=== PATIENT | male | born 1970 | race American Indian/Alaskan Native ===

== ENCOUNTER 2016-07-19 12:41 | Emergency (ER) | payer SELFPAY ==
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
[2016-07-19] MEDS ORDERED: XYLOCAINE 1% MPF 5 mL INFILTRATI ONE (18:03)
[2016-07-19] MEDS ORDERED: BOOSTRIX IM ONE (18:04)
[2016-07-19 18:39] VITALS: BP 127/90
== END 2016-07-19 18:37 | disposition home or self-care (01) ==
LOC: ED 12:41
DX: S60.351A Superficial foreign body of right thumb, initial encounter (principal); W45.8XXA Other foreign body or object entering through skin, initial encounter; I10 Essential (primary) hypertension; E78.00 Pure hypercholesterolemia, unspecified; F12.10 Cannabis abuse, uncomplicated; F17.200 Nicotine dependence, unspecified, uncomplicated; W22.8XXA Striking against or struck by other objects, initial encounter; Y93.89 Activity, other specified; Y92.89 Other specified places as the place of occurrence of the external cause; Y99.8 Other external cause status
CPT/HCPCS: 90471; 90715

== ENCOUNTER 2018-05-23 10:02 | Inpatient (IN) | payer SELFPAY ==
[2018-05-23 10:46] LABS: Basophils # (Auto) 0.1 K/mm3 (0.0-0.1); Basophils % (Auto) 0.6 % (0.0-1.8); Eosinophils # (Auto) 0.1 K/mm3 (0.0-0.4); Hemoglobin 13.8 gm/dl (11.8-15.2); Lymphocytes # (Auto) 1.1 K/mm3 (1.2-5.4); Lymphocytes % (Auto) 8.8 % (13.4-35.0); Mean Corpuscular HGB Conc 32 % (32-34); Mean Corpuscular Volume 82 fl (84-94); Monocytes # (Auto) 1.2 K/mm3 (0.0-0.8); Platelet Count 259 K/mm3 (140-440); Red Blood Count 5.28 M/mm3 (3.65-5.03); Red Cell Distribution Width 14.4 % (13.2-15.2)
[2018-05-23 11:01] LABS: Calcium 9.3 mg/dL (8.4-10.2)
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
[2018-05-23 12:33] LABS: Creatine Kinase MB 3.5 ng/mL (0.0-4.0)
--- NOTE | 2018-05-23 21:31 | Event Note ---
Date: 05/23/18 See dictated h/p in reports CHF exacerbation DORA/CKD HTN
[2018-05-24] MEDS ORDERED: PERCOCET 5/325 PO PRN (02:50)
[2018-05-24] MEDS ORDERED: SODIUM CHLORIDE FLUSH SYRINGE 10 ML IV PRN (02:50)
[2018-05-24] MEDS ORDERED: ZOFRAN IV PRN (02:50)
[2018-05-24] MEDS ORDERED: TYLENOL PO PRN (02:50)
[2018-05-24] MEDS ORDERED: DILAUDID IV PRN (02:50)
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
[2018-05-24] MEDS: K-DUR PO SCH ×2 (05:03→14:39)
[2018-05-24] MEDS: COREG PO SCH ×3 (05:04→21:32)
[2018-05-24 05:31] LABS: Basophils # (Auto) 0.1 K/mm3 (0.0-0.1); Basophils % (Auto) 0.5 % (0.0-1.8); Eosinophils # (Auto) 0.2 K/mm3 (0.0-0.4); Eosinophils % (Auto) 1.6 % (0.0-4.3); Hematocrit 40.4 % (35.5-45.6); Hemoglobin 13.2 gm/dl (11.8-15.2); Lymphocytes % (Auto) 17.1 % (13.4-35.0); Mean Corpuscular HGB Conc 33 % (32-34); Mean Corpuscular Volume 81 fl (84-94); Monocytes # (Auto) 1.5 K/mm3 (0.0-0.8); Monocytes % (Auto) 12.6 % (0.0-7.3); Platelet Count 255 K/mm3 (140-440); Red Blood Count 4.99 M/mm3 (3.65-5.03); Red Cell Distribution Width 14.7 % (13.2-15.2)
[2018-05-24] MEDS ORDERED: LASIX IV SCH (06:00)
[2018-05-24 06:09] LABS: Calcium 8.9 mg/dL (8.4-10.2)
[2018-05-24] MEDS: APRESOLINE PO SCH ×3 (08:32→21:32)
[2018-05-24] MEDS ORDERED: HCTZ PO SCH (10:00)
[2018-05-24] MEDS ORDERED: ZESTRIL PO SCH (10:00)
--- NOTE | 2018-05-24 10:16 | Consultation ---
History of Present Illness - Reason for Consult Consult date: 05/24/18 acute renal failure, chronic renal failure, accelerated hypertension Requesting physician: JOIE NOVAK - History of Present Illness The patient is a 47-year-old male presented with the chief complaint breath. The patient states he began having chest reflux over the past 4 days. Patient states the symptoms included burning in his ears, sore throat and increased eructation. Patient denied ever having chest pain or chest discomfort. The patient states this morning he experienced dyspnea on exertion and nausea. Patient states she has not noticed a change in his urinary output over the past 3 years. Patient denies bilateral lower extremity swelling Location: [See above] Duration: [See above] Quality: Dyspnea on exertion Severity: [See above] Modifying factors: [see above] Context: [see above] Mode of transportation: [not driving] - Past Medical History Hx Hypertension: Yes Hx Congestive Heart Failure: Yes Hx Renal Disease: Yes Hx Asthma: Yes Additional medical history: ENLARGED HEART. HIGH CHOLESTEROL - Surgical History Past Surgical History?: No - Family History Family history: no significant - Social History Smoking Status: Current Some Day Smoker (occasional) Substance Use Type: Alcohol (occasional), Cocaine (crack use.) ROS: Stated complaint: RODERICK Other details as noted in HPI Constitutional: no symptoms reported Eyes: denies: eye pain ENT: denies: throat pain Respiratory: shortness of breath, SOB with exertion Cardiovascular: dyspnea on exertion. denies: chest pain Endocrine: no symptoms reported Gastrointestinal: nausea, vomiting. denies: abdominal pain Genitourinary: denies: dysuria Musculoskeletal: denies: back pain Neurological: denies: headache Medications and Allergies Allergies Allergy/AdvReac Type Severity Reaction Status Date / Time No Known Allergies Allergy Verified 05/23/18 10:10 Home Medications Medication Instructions Recorded Confirmed Last Taken Type Carvedilol [Coreg] 25 mg PO BID 05/23/18 05/23/18 Unknown History Famotidine [Pepcid] 40 mg PO QHS 05/23/18 05/23/18 Unknown History Lisinopril [Zestril TAB] 40 mg PO QDAY 05/23/18 05/23/18 Unknown History amLODIPine [Norvasc] 10 mg PO DAILY 05/23/18 05/23/18 Unknown History hydrALAZINE [Apresoline TAB] 100 mg PO TID 05/23/18 05/23/18 Unknown History hydroCHLOROthiazide [HCTZ] 25 mg PO QDAY 05/23/18 05/23/18 Unknown History Active Meds: Active Medications Acetaminophen (Tylenol) 650 mg PO Q4H PRN PRN Reason: Pain MILD(1-3)/Fever >100.5/BAXTER Amlodipine Besylate (Norvasc) 10 mg PO DAILY [facility] Carvedilol (Coreg) 25 mg PO BID [facility] Last Admin: 05/24/18 05:04 Dose: 25 mg Documented by: Famotidine (Pepcid) 10 mg PO BID [facility] Furosemide (Lasix) 40 mg IV 0600,1800 [facility] Last Admin: 05/24/18 05:36 Dose: 40 mg Documented by: Hydralazine HCl (Apresoline) 100 mg PO TID [facility] Hydrochlorothiazide (Hctz) 25 mg PO QDAY [facility] Hydromorphone HCl (Dilaudid) 0.5 mg IV Q3H PRN PRN Reason: Pain , Severe (7-10) Sodium Chloride (Nacl 0.9% 1000 Ml) 1,000 mls @ 75 mls/hr IV DIRECT SEEMA Lisinopril (Zestril) 40 mg PO QDAY [facility] Miscellaneous Medication (Famotidine [Pepcid]) 40 mg PO QHS [facility] Ondansetron HCl (Zofran) 4 mg IV Q8H PRN PRN Reason: Nausea And Vomiting Oxycodone/Acetaminophen (Percocet 5/325) 1 tab PO Q6H PRN PRN Reason: Pain, Moderate (4-6) Pneumococcal Polyvalent Vaccine (Pneumovax 23) 0.5 ml IM .ONCE ONE Stop: 05/24/18 12:01 Potassium Chloride (K-Dur) 10 meq PO Q12H [facility] Last Admin: 05/24/18 05:03 Dose: 10 meq Documented by: Sodium Chloride (Sodium Chloride Flush Syringe 10 Ml) 10 ml IV BID [facility] Sodium Chloride (Sodium Chloride Flush Syringe 10 Ml) 10 ml IV PRN PRN PRN Reason: LINE FLUSH Exam - Vital Signs Vital signs: Vital Signs Temp Pulse Resp BP Pulse Ox 98 F 55 L 20 127/74 98 05/23/18 10:10 05/23/18 10:10 05/23/18 10:10 05/23/18 10:10 05/23/18 10:10 - Physical Exam Narrative exam: GENERAL: The patient is well-developed well-nourished male lying on stretcher not appearing to be in acute distress. [] HEENT: Normocephalic. Atraumatic. Extraocular motions are intact. Patient has moist mucous membranes. NECK: Supple. Trachea midline CHEST/LUNGS: Clear to auscultation. There is no respiratory distress noted. HEART/CARDIOVASCULAR: Regular. There is no tachycardia. There is no gallop rub or murmur. ABDOMEN: Abdomen is soft, nontender. Patient has normal bowel sounds. There is no abdominal distention. SKIN: There is no rash. There is no edema. There is no diaphoresis. NEURO: The patient is awake, alert, and oriented. The patient is cooperative. The patient has normal speech MUSCULOSKELETAL: There is no evidence of acute injury. Results - Lab Results 05/24/18 04:57 05/24/18 04:57 Most recent lab results Calcium 8.9 mg/dL (8.4-10.2) 05/24/18 04:57 Assessment and Plan Impression: * DORA on adv CKD sec to HTN--cr 1.9 in 2013 * Uncontrolled HTN, obesity, salt intake, cocaine use and noncompliance are all contributory factors. * Chest pain under evaluation * cardiomyopathy * Chronic smoker. * Drug abuse * Alcohol abuse. 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
[2018-05-24] MEDS: PEPCID PO SCH ×2 (11:33→21:31)
[2018-05-24] MEDS: SODIUM CHLORIDE FLUSH SYRINGE 10 ML IV SCH ×2 (11:34→21:32)
[2018-05-24] MEDS: NORVASC PO SCH (11:34)
[2018-05-24] MEDS ORDERED: AFLURIA QUAD 2018-2019 SYRINGE IM ONE (12:00)
[2018-05-24] MEDS ORDERED: PNEUMOVAX 23 IM ONE (12:00)
--- NOTE | 2018-05-24 14:29 | Progress Note ---
Assessment and Plan Assessment and plan: Patient is a 47 yo Black Man with a history of cardiomyopathy, dyslipidemia, hypertension, CKD 3, asthma, tobacco dependency, CHF, cocaine use and GERD who presented to [facility] ED with SOB and acid reflux. * 2v CXR Impression: Cardiomegaly * 2D ECHO moderate concentric LVH, global left ventricular function is at the lower limits of normal, estimated EF 45-50%, left ventricular diastolic filling pattern is consistent with pseudonormalization, right atrium mildly dilated, trace TR/PA Acute on chronic combined heart failure: treat with iv lasix, check proBNP Acute on chronic renal failure, stage 3, last Cr in our EMR is 1.9 on 12/16/2013, now 4.7: consulted Nephrology, reduce IV lasix SIRS with organ dysfuntion, poa due the above, WBC 13.1, rr 22 wo signs of infection GERD: treat with PPI History Interval history: Patient was seen and examined. Follow-up on current diagnosis of SOB, improved and ARF. Overnight uneventful. Patient denies any chest pain, shortness breath, nausea/vomiting or severe headaches. Imaging, nursing note, chart, labs and old chart reviewed. Discussed with patient. Hospitalist Physical - Physical exam Narrative exam: Gen: WDWN, NAD, Awake, Alert, Orientated HEENT: NCAT, EOMI, PERRL, OP Clear Neck: supple, no adenopathy, no thyromegaly, equyivocal JVD CVS/Heart: RRR, normal S1S2, pulses present bilaterally Chest/Lungs: diminished bs bilateral, Symmetrical chest expansion, good air entry bilaterally GI/Abdomen: soft, NTND, good bowel sounds, no guarding or rebound /Bladder: no suprapubic tenderness, no CVA or paraspinal tenderness Extermity/Skin: no c/c/e, no obvious rash MSK: FROM x 4 Neuro: CN 2-12 grossly intact, no new focal deficits Psych: calm - Constitutional Vitals: Temp Pulse Resp BP Pulse Ox 98.1 F 54 L 22 125/73 98 05/24/18 11:27 05/24/18 11:27 05/24/18 11:27 05/24/18 11:27 05/24/18 11:27 Results - Labs CBC & Chem 7: 05/24/18 04:57 05/24/18 04:57 Labs: Laboratory Last Values WBC 11.9 K/mm3 (4.5-11.0) H 05/24/18 04:57 RBC 4.99 M/mm3 (3.65-5.03) 05/24/18 04:57 Hgb 13.2 gm/dl (11.8-15.2) 05/24/18 04:57 Hct 40.4 % (35.5-45.6) 05/24/18 04:57 MCV 81 fl (84-94) L 05/24/18 04:57 MCH 27 pg (28-32) L 05/24/18 04:57 MCHC 33 % (32-34) 05/24/18 04:57 RDW 14.7 % (13.2-15.2) 05/24/18 04:57 Plt Count 255 K/mm3 (140-440) 05/24/18 04:57 Lymph % (Auto) 17.1 % (13.4-35.0) 05/24/18 04:57 Whitley % (Auto) 12.6 % (0.0-7.3) H 05/24/18 04:57 Eos % (Auto) 1.6 % (0.0-4.3) 05/24/18 04:57 Baso % (Auto) 0.5 % (0.0-1.8) 05/24/18 04:57 Lymph # 2.0 K/mm3 (1.2-5.4) 05/24/18 04:57 Whitley # 1.5 K/mm3 (0.0-0.8) H 05/24/18 04:57 Eos # 0.2 K/mm3 (0.0-0.4) 05/24/18 04:57 Baso # 0.1 K/mm3 (0.0-0.1) 05/24/18 04:57 Seg Neutrophils % 68.2 % (40.0-70.0) 05/24/18 04:57 Seg Neutrophils # 8.1 K/mm3 (1.8-7.7) H 05/24/18 04:57 D-Dimer 162.60 ng/mlDDU (0-234) 05/23/18 11:53 Sodium 141 mmol/L (137-145) 05/24/18 04:57 Potassium 3.7 mmol/L (3.6-5.0) 05/24/18 04:57 Chloride 101.3 mmol/L (98-107) 05/24/18 04:57 Carbon Dioxide 22 mmol/L (22-30) 05/24/18 04:57 Anion Gap 21 mmol/L 05/24/18 04:57 BUN 42 mg/dL (9-20) H 05/24/18 04:57 Creatinine 5.1 mg/dL (0.8-1.5) H 05/24/18 04:57 Estimated GFR 15 ml/min 05/24/18 04:57 BUN/Creatinine Ratio 8 % 05/24/18 04:57 Glucose 118 mg/dL (75-100) H 05/24/18 04:57 Hemoglobin A1c 6.3 % (4-6) H 05/24/18 04:57 Calcium 8.9 mg/dL (8.4-10.2) 05/24/18 04:57 Total Bilirubin 0.40 mg/dL (0.1-1.2) 05/24/18 04:57 AST 11 units/L (5-40) 05/24/18 04:57 ALT 11 units/L (7-56) 05/24/18 04:57 Alkaline Phosphatase 91 units/L (35-129) 05/24/18 04:57 Total Creatine Kinase 487 units/L (55-170) H 05/23/18 10:31 CK-MB (CK-2) 3.5 ng/mL (0.0-4.0) 05/23/18 10:31 CK-MB (CK-2) Rel Index 0.7 (0-4) 05/23/18 10:31 Troponin T 0.026 ng/mL (0.00-0.029) 05/23/18 10:31 Total Protein 7.2 g/dL (6.3-8.2) 05/24/18 04:57 Albumin 4.0 g/dL (3.9-5) 05/24/18 04:57 Albumin/Globulin Ratio 1.3 % 05/24/18 04:57
--- NOTE | 2018-05-24 15:34 | Consultation ---
History of Present Illness Consult date: 05/24/18 Requesting physician: BARBARA MONZON Consult reason: congestive heart failure History of present illness: The pt is a 47 YO male with a past medical history of HF, HTN, CKD, ETOH use, tobacco use, crack cocaine use. He reports that he is followed by [facility]. He presented with complaints of SOB. He states that he is usually SOB at baseline but his SOB became progressively worse yesterday so he decided to seek medical attention. He denies any chest pain, palpitations, n/v, diaphoresis, dizziness or syncope. He reports compliance with his home medication regimen which includes coreg, lisinopril, HCTZ, amlodipine. He underwent echo today which showed EF 45-50%, moderate LVH, pseudonormalization. He denies any prior CAD or AMI. Past History Past Medical History: heart failure, hypertension Medications and Allergies Allergies Allergy/AdvReac Type Severity Reaction Status Date / Time No Known Allergies Allergy Verified 05/23/18 10:10 Home Medications Medication Instructions Recorded Confirmed Last Taken Type Carvedilol [Coreg] 25 mg PO BID 05/23/18 05/23/18 Unknown History Famotidine [Pepcid] 40 mg PO QHS 05/23/18 05/23/18 Unknown History Lisinopril [Zestril TAB] 40 mg PO QDAY 05/23/18 05/23/18 Unknown History amLODIPine [Norvasc] 10 mg PO DAILY 05/23/18 05/23/18 Unknown History hydrALAZINE [Apresoline TAB] 100 mg PO TID 05/23/18 05/23/18 Unknown History hydroCHLOROthiazide [HCTZ] 25 mg PO QDAY 05/23/18 05/23/18 Unknown History Active Meds: Active Medications Acetaminophen (Tylenol) 650 mg PO Q4H PRN PRN Reason: Pain MILD(1-3)/Fever >100.5/BAXTER Last Admin: 05/24/18 11:59 Dose: 650 mg Documented by: Amlodipine Besylate (Norvasc) 10 mg PO DAILY [facility] Last Admin: 05/24/18 11:34 Dose: 10 mg Documented by: Carvedilol (Coreg) 25 mg PO BID [facility] Last Admin: 05/24/18 11:33 Dose: 25 mg Documented by: Famotidine (Pepcid) 10 mg PO BID [facility] Last Admin: 05/24/18 11:33 Dose: 10 mg Documented by: Furosemide (Lasix) 40 mg IV QDAY [facility] Hydralazine HCl (Apresoline) 100 mg PO TID [facility] Last Admin: 05/24/18 14:40 Dose: 100 mg Documented by: Hydromorphone HCl (Dilaudid) 0.5 mg IV Q3H PRN PRN Reason: Pain , Severe (7-10) Sodium Chloride (Nacl 0.9% 1000 Ml) 1,000 mls @ 75 mls/hr IV DIRECT [facility] Ondansetron HCl (Zofran) 4 mg IV Q8H PRN PRN Reason: Nausea And Vomiting Oxycodone/Acetaminophen (Percocet 5/325) 1 tab PO Q6H PRN PRN Reason: Pain, Moderate (4-6) Potassium Chloride (K-Dur) 10 meq PO Q12H [facility] Last Admin: 05/24/18 14:39 Dose: 10 meq Documented by: Sodium Chloride (Sodium Chloride Flush Syringe 10 Ml) 10 ml IV BID [facility] Last Admin: 05/24/18 11:34 Dose: 10 ml Documented by: Sodium Chloride (Sodium Chloride Flush Syringe 10 Ml) 10 ml IV PRN PRN PRN Reason: LINE FLUSH Review of Systems Constitutional: no fever, no chills, no sweats Ears, nose, mouth and throat: no ear pain, no nose pain, no sinus pressure, no sinus pain Cardiovascular: orthopnea, shortness of breath, dyspnea on exertion, paroxysmal nocturnal dyspnea, high blood pressure, no chest pain, no palpitations, no rapid/irregular heart beat, no edema, no syncope, no lightheadedness Respiratory: shortness of breath, dyspnea on exertion, no cough, no congestion, no wheezing, no pain on inspiration Gastrointestinal: no abdominal pain, no nausea, no vomiting, no diarrhea, no co nstipation, no change in bowel habits Genitourinary Male: no dysuria, no hematuria, no flank pain, no discharge, no urinary frequency, no urinary hesitancy Musculoskeletal: no neck stiffness, no neck pain, no shooting arm pain, no arm numbness/tingling, no low back pain, no shooting leg pain Integumentary: no rash, no pruritis, no redness, no sores, no wounds Neurological: no head injury, no paralysis, no weakness, no parathesias, no numbness, no tingling Psychiatric: no anxiety Endocrine: no cold intolerance, no heat intolerance Hematologic/Lymphatic: no easy bruising, no easy bleeding Allergic/Immunologic: no urticaria, no wheezing Physical Examination Vital Signs Temp Pulse Resp BP Pulse Ox 98 F 55 L 20 127/74 98 05/23/18 10:10 05/23/18 10:10 05/23/18 10:10 05/23/18 10:10 05/23/18 10:10 General appearance: no acute distress HEENT: Positive: PERRL, Normocephaly, Mucus Membranes Moist Neck: Positive: neck supple, trachea midline Cardiac: Positive: Reg Rate and Rhythm, S1/S2 Lungs: Positive: Decreased Breath Sounds Neuro: Positive: Grossly Intact Abdomen: Positive: Soft. Negative: Tender Skin: Negative: Rash, Wound Musculoskeletal: No Pain Extremities: Absent: edema Results 05/24/18 04:57 05/24/18 04:57 Cardiac Enzymes 05/24/18 Range/Units 04:57 AST 11 (5-40) units/L CBC 05/24/18 Range/Units 04:57 WBC 11.9 H (4.5-11.0) K/mm3 RBC 4.99 (3.65-5.03) M/mm3 Hgb 13.2 (11.8-15.2) gm/dl Hct 40.4 (35.5-45.6) % Plt Count 255 (140-440) K/mm3 Lymph # 2.0 (1.2-5.4) K/mm3 [place]y # 1.5 H (0.0-0.8) K/mm3 Eos # 0.2 (0.0-0.4) K/mm3 Baso # 0.1 (0.0-0.1) K/mm3 Comprehensive Metabolic Panel 05/24/18 Range/Units 04:57 Sodium 141 (137-145) mmol/L Potassium 3.7 (3.6-5.0) mmol/L Chloride 101.3 (98-107) mmol/L Carbon Dioxide 22 (22-30) mmol/L BUN 42 H (9-20) mg/dL Creatinine 5.1 H (0.8-1.5) mg/dL Glucose 118 H (75-100) mg/dL Calcium 8.9 (8.4-10.2) mg/dL AST 11 (5-40) units/L ALT 11 (7-56) units/L Alkaline Phosphatase 91 (35-129) units/L Total Protein 7.2 (6.3-8.2) g/dL Albumin 4.0 (3.9-5) g/dL - Imaging and Cardiology Echo: report reviewed (EF 45-50%, moderate LVH, pseudonormalization. ) EKG: report reviewed, image reviewed EKG interpretations - Telemetry EKG Rhythm: Sinus Rhythm - EKG Sinus rhythms and dysrhythmias: sinus rhythm Repolarization changes or abnormalities: repolarization abn secondary to ventricular hypertrophy Assessment and Plan Agree with present cardiac management. Follow nephrology recs. Attempt to obtain [facility] records. The patient has been seen in conjunction with Dr. Price Harrison who agrees with the assessment and plan of care. - Patient Problems (1) Acute HFrEF (heart failure with reduced ejection fraction) Current Visit: Yes Status: Acute (2) Acute on chronic renal failure Current Visit: Yes Status: Acute (3) Hypertension Current Visit: Yes Status: Chronic (4) History of ETOH abuse Current Visit: Yes Status: Chronic (5) History of cocaine use Current Visit: Yes Status: Chronic (6) History of tobacco use Current Visit: Yes Status: Chronic
[2018-05-24 15:50] LABS: Bacteria,Urine 1+ /HPF (Negative); Bilirubin,Urine NEG (Negative); Blood,Urine NEG (Negative); Color,Urine Yellow (Yellow); Urobilinogen,Urine < 2.0 mg/dL (<2.0); WBC,Urine < 1.0 /HPF (0.0-6.0)
[2018-05-24] MEDS ORDERED: NON-FORMULARY (Famotidine [Pepcid] 40 MG) PO SCH (22:00)
[2018-05-25] MEDS: NACL 0.9% 1000 ML 1,000 ML IV SCH ×2 (03:01→13:51)
[2018-05-25] MEDS: K-DUR PO SCH (05:37)
[2018-05-25 06:28] LABS: Calcium 8.8 mg/dL (8.4-10.2)
[2018-05-25] MEDS: PEPCID PO SCH ×2 (09:16→23:16)
[2018-05-25] MEDS: SODIUM CHLORIDE FLUSH SYRINGE 10 ML IV SCH ×2 (09:16→23:17)
[2018-05-25] MEDS ORDERED: LASIX IV SCH (10:00)
--- NOTE | 2018-05-25 10:06 | Progress Note ---
Assessment and Plan Impression: * DORA on adv CKD sec to HTN--cr 1.9 in 2013 * Uncontrolled HTN, obesity, salt intake, cocaine use and noncompliance are all contributory factors. * Chest pain under evaluation * cardiomyopathy * Chronic smoker. * Drug abuse * Alcohol abuse. Plan: * hold tatyana and hctz * stop lasix * follow up 24hr crcl and protein * check ua and renal us * ckd likely due to uncontrolled hd * cr was 1.9 in 2014, likely progression of ckd * no indication for senior integration architect at this time * avoid nephrotoxins * renal diet * do not over diurese Subjective Date of service: 05/25/18 Principal diagnosis: ckd stage 4/5 Interval history: resting in bed today Objective - Exam Narrative Exam: GENERAL: The patient is well-developed well-nourished male lying on stretcher not appearing to be in acute distress. [] HEENT: Normocephalic. Atraumatic. Extraocular motions are intact. Patient has moist mucous membranes. NECK: Supple. Trachea midline CHEST/LUNGS: Clear to auscultation. There is no respiratory distress noted. HEART/CARDIOVASCULAR: Regular. There is no tachycardia. There is no gallop rub or murmur. ABDOMEN: Abdomen is soft, nontender. Patient has normal bowel sounds. There is no abdominal distention. SKIN: There is no rash. There is no edema. There is no diaphoresis. NEURO: The patient is awake, alert, and oriented. The patient is cooperative. The patient has normal speech MUSCULOSKELETAL: There is no evidence of acute injury. - Vital Signs Vital signs: Vital Signs - 12hr 05/24/18 05/25/18 23:37 05:30 Temperature 99.3 F 98.2 F Pulse Rate 59 L 50 L Respiratory 20 18 Rate Blood Pressure 115/60 131/72 O2 Sat by Pulse 95 98 Oximetry - Lab 05/24/18 04:57 05/25/18 05:22 Most recent lab results Calcium 8.8 mg/dL (8.4-10.2) 05/25/18 05:22 Medications & Allergies - Medications Allergies/Adverse Reactions: Allergies No Known Allergies Allergy (Verified 05/23/18 10:10) Home Medications: Home Medications Medication Instructions Recorded Confirmed Last Taken Type Carvedilol [Coreg] 25 mg PO BID 05/23/18 05/23/18 Unknown History Famotidine [Pepcid] 40 mg PO QHS 05/23/18 05/23/18 Unknown History Lisinopril [Zestril TAB] 40 mg PO QDAY 05/23/18 05/23/18 Unknown History amLODIPine [Norvasc] 10 mg PO DAILY 05/23/18 05/23/18 Unknown History hydrALAZINE [Apresoline TAB] 100 mg PO TID 05/23/18 05/23/18 Unknown History hydroCHLOROthiazide [HCTZ] 25 mg PO QDAY 05/23/18 05/23/18 Unknown History Active Medications: Generic Name Dose Route Start Last Admin Trade Name Freq PRN Reason Stop Dose Admin Acetaminophen 650 mg 05/24/18 02:50 05/24/18 11:59 Tylenol PO 650 mg Q4H PRN Administration Pain MILD(1-3)/Fever >100.5/BAXTER Amlodipine Besylate 10 mg 05/24/18 10:00 05/24/18 11:34 Norvasc PO 10 mg DAILY SEEMA Administration Carvedilol 25 mg 05/24/18 03:00 05/24/18 21:32 Coreg PO 25 mg BID SEEMA Administration Famotidine 10 mg 05/24/18 10:00 05/25/18 09:16 Pepcid PO 10 mg BID SEEMA Administration Furosemide 40 mg 05/25/18 10:00 05/25/18 09:15 Lasix IV 40 mg QDAY SEEMA Administration Hydralazine HCl 100 mg 05/24/18 08:00 05/24/18 21:32 Apresoline PO 100 mg TID SEEMA Administration Hydromorphone HCl 0.5 mg 05/24/18 02:50 Dilaudid IV Q3H PRN Pain , Severe (7-10) Sodium Chloride 1,000 mls @ 75 mls/hr 05/24/18 03:00 05/25/18 03:01 Nacl 0.9% 1000 Ml IV 75 mls/hr DIRECT [facility]EMA Administration Ondansetron HCl 4 mg 05/24/18 02:50 Zofran IV Q8H PRN Nausea And Vomiting Oxycodone/Acetaminophen 1 tab 05/24/18 02:50 Percocet 5/325 PO Q6H PRN Pain, Moderate (4-6) Potassium Chloride 10 meq 05/24/18 03:00 05/25/18 05:37 K-Dur PO 10 meq Q12H [facility] Administration Sodium Chloride 10 ml 05/24/18 10:00 05/25/18 09:16 Sodium Chloride Flush Syringe 10 Ml IV 10 ml BID [facility] Administration Sodium Chloride 10 ml 05/24/18 02:50 Sodium Chloride Flush Syringe 10 Ml IV PRN PRN LINE FLUSH
--- NOTE | 2018-05-25 12:28 | Progress Note ---
Assessment and Plan 1) Acute HFrEF (heart failure with reduced ejection fraction) Current Visit: Yes Status: Acute (2) Acute on chronic renal failure Current Visit: Yes Status: Acute (3) Hypertension Current Visit: Yes Status: Chronic (4) History of ETOH abuse Current Visit: Yes Status: Chronic (5) History of cocaine use Current Visit: Yes Status: Chronic (6) History of tobacco use Current Visit: Yes Status: Chronic Subjective Date of service: 05/25/18 Principal diagnosis: ckd stage 4/5 Interval history: Felling better. RODERICK and dizziness better. Objective Vital Signs Temp Pulse Resp BP Pulse Ox 05/25/18 05:30 98.2 F 50 L 18 131/72 98 05/24/18 23:37 99.3 F 59 L 20 115/60 95 05/24/18 17:46 98.1 F 54 L 22 139/82 96 - Physical Examination General: No Apparent Distress HEENT: Positive: PERRL, Normocephaly, Mucus Membranes Moist Neck: Positive: neck supple, trachea midline. Negative: JVD/HJR Cardiac: Positive: Reg Rate and Rhythm, S4 Lungs: Positive: clear to auscultation Neuro: Positive: Grossly Intact Abdomen: Positive: Soft. Negative: Tender Skin: Negative: Rash, Wound Musculoskeletal: No Pain Extremities: Absent: edema - Labs and Meds Comprehensive Metabolic Panel 05/25/18 Range/Units 05:22 Sodium 140 (137-145) mmol/L Potassium 3.7 (3.6-5.0) mmol/L Chloride 102.1 (98-107) mmol/L Carbon Dioxide 24 (22-30) mmol/L BUN 45 H (9-20) mg/dL Creatinine 5.5 H (0.8-1.5) mg/dL Glucose 105 H (75-100) mg/dL Calcium 8.8 (8.4-10.2) mg/dL - Imaging and Cardiology EKG: report reviewed, image reviewed Echo: report reviewed (EF 45-50%, moderate LVH, pseudonormalization. ) - Telemetry EKG Rhythm: Sinus Rhythm - EKG Sinus rhythms and dysrhythmias: sinus rhythm Repolarization changes or abnormalities: repolarization abn secondary to ventricular hypertrophy
[2018-05-25] MEDS: APRESOLINE PO SCH ×3 (13:46→20:50)
[2018-05-25] MEDS: NORVASC PO SCH (13:50)
[2018-05-25] MEDS: COREG PO SCH ×2 (13:50→23:15)
--- NOTE | 2018-05-25 14:42 | Progress Note ---
Assessment and Plan Assessment and plan: Patient is a 47 yo Black Man with a history of cardiomyopathy, dyslipidemia, hypertension, CKD 3, asthma, tobacco dependency, CHF, cocaine use and GERD who presented to [facility] ED with SOB and acid reflux. * 2v CXR Impression: Cardiomegaly * 2D ECHO moderate concentric LVH, global left ventricular function is at the lower limits of normal, estimated EF 45-50%, left ventricular diastolic filling pattern is consistent with pseudonormalization, right atrium mildly dilated, trace TR/IL Acute on chronic combined heart failure: Cardiology is following. Acute on chronic renal failure, stage 3, last Cr in our EMR is 1.9 on 12/16/2013, now 4.7: still worsening, stop lasix, Nephrology is following SIRS with organ dysfuntion, poa due the above, WBC 13.1, rr 22 wo signs of infection GERD: treat with PPI History Interval history: Patient was seen and examined. Follow-up on current diagnosis of SOB, improved and ARF. Overnight uneventful. Patient denies any chest pain, shortness breath, nausea/vomiting or severe headaches. Imaging, nursing note, chart, labs and old chart reviewed. Discussed with patient. Hospitalist Physical - Physical exam Narrative exam: Gen: WDWN, NAD, Awake, Alert, Orientated HEENT: NCAT, EOMI, PERRL, OP Clear Neck: supple, no adenopathy, no thyromegaly, equyivocal JVD CVS/Heart: RRR, normal S1S2, pulses present bilaterally Chest/Lungs: diminished bs bilateral, Symmetrical chest expansion, good air entry bilaterally GI/Abdomen: soft, NTND, good bowel sounds, no guarding or rebound /Bladder: no suprapubic tenderness, no CVA or paraspinal tenderness Extermity/Skin: no c/c/e, no obvious rash MSK: FROM x 4 Neuro: CN 2-12 grossly intact, no new focal deficits Psych: calm - Constitutional Vitals: Temp Pulse Resp BP Pulse Ox 98.0 F 58 L 18 143/81 97 05/25/18 12:25 05/25/18 12:25 05/25/18 12:25 05/25/18 12:25 05/25/18 12:25 General appearance: Present: no acute distress Results - Labs CBC & Chem 7: 05/24/18 04:57 05/25/18 05:22 Labs: Laboratory Last Values WBC 11.9 K/mm3 (4.5-11.0) H 05/24/18 04:57 RBC 4.99 M/mm3 (3.65-5.03) 05/24/18 04:57 Hgb 13.2 gm/dl (11.8-15.2) 05/24/18 04:57 Hct 40.4 % (35.5-45.6) 05/24/18 04:57 MCV 81 fl (84-94) L 05/24/18 04:57 MCH 27 pg (28-32) L 05/24/18 04:57 MCHC 33 % (32-34) 05/24/18 04:57 RDW 14.7 % (13.2-15.2) 05/24/18 04:57 Plt Count 255 K/mm3 (140-440) 05/24/18 04:57 Lymph % (Auto) 17.1 % (13.4-35.0) 05/24/18 04:57 [place] % (Auto) 12.6 % (0.0-7.3) H 05/24/18 04:57 Eos % (Auto) 1.6 % (0.0-4.3) 05/24/18 04:57 Baso % (Auto) 0.5 % (0.0-1.8) 05/24/18 04:57 Lymph # 2.0 K/mm3 (1.2-5.4) 05/24/18 04:57 [place] # 1.5 K/mm3 (0.0-0.8) H 05/24/18 04:57 Eos # 0.2 K/mm3 (0.0-0.4) 05/24/18 04:57 Baso # 0.1 K/mm3 (0.0-0.1) 05/24/18 04:57 Seg Neutrophils % 68.2 % (40.0-70.0) 05/24/18 04:57 Seg Neutrophils # 8.1 K/mm3 (1.8-7.7) H 05/24/18 04:57 D-Dimer 162.60 ng/mlDDU (0-234) 05/23/18 11:53 Sodium 140 mmol/L (137-145) 05/25/18 05:22 Potassium 3.7 mmol/L (3.6-5.0) 05/25/18 05:22 Chloride 102.1 mmol/L (98-107) 05/25/18 05:22 Carbon Dioxide 24 mmol/L (22-30) 05/25/18 05:22 Anion Gap 18 mmol/L 05/25/18 05:22 BUN 45 mg/dL (9-20) H 05/25/18 05:22 Creatinine 5.5 mg/dL (0.8-1.5) H 05/25/18 05:22 Estimated GFR 13 ml/min 05/25/18 05:22 BUN/Creatinine Ratio 8 % 05/25/18 05:22 Glucose 105 mg/dL (75-100) H 05/25/18 05:22 Hemoglobin A1c 6.3 % (4-6) H 05/24/18 04:57 Calcium 8.8 mg/dL (8.4-10.2) 05/25/18 05:22 Total Bilirubin 0.40 mg/dL (0.1-1.2) 05/24/18 04:57 AST 11 units/L (5-40) 05/24/18 04:57 ALT 11 units/L (7-56) 05/24/18 04:57 Alkaline Phosphatase 91 units/L (35-129) 05/24/18 04:57 Total Creatine Kinase 487 units/L (55-170) H 05/23/18 10:31 CK-MB (CK-2) 3.5 ng/mL (0.0-4.0) 05/23/18 10:31 CK-MB (CK-2) Rel Index 0.7 (0-4) 05/23/18 10:31 Troponin T 0.026 ng/mL (0.00-0.029) 05/23/18 10:31 NT-Pro-B Natriuret Pep 85.50 pg/mL (0-450) 05/24/18 14:28 Total Protein 7.2 g/dL (6.3-8.2) 05/24/18 04:57 Albumin 4.0 g/dL (3.9-5) 05/24/18 04:57 Albumin/Globulin Ratio 1.3 % 05/24/18 04:57 Urine Color Yellow (Yellow) 05/24/18 14:50 Urine Turbidity Clear (Clear) 05/24/18 14:50 Urine pH 5.0 (5.0-7.0) 05/24/18 14:50 Ur Specific [place] 1.006 (1.003-1.030) 05/24/18 14:50 Urine Protein 100 mg/dl mg/dL (Negative) 05/24/18 14:50 Urine Glucose (UA) Neg mg/dL (Negative) 05/24/18 14:50 Urine Ketones Neg mg/dL (Negative) 05/24/18 14:50 Urine Blood Neg (Negative) 05/24/18 14:50 Urine Nitrite Neg (Negative) 05/24/18 14:50 Urine Bilirubin Neg (Negative) 05/24/18 14:50 Urine Urobilinogen < 2.0 mg/dL (<2.0) 05/24/18 14:50 Ur Leukocyte Esterase Neg (Negative) 05/24/18 14:50 Urine WBC (Auto) < 1.0 /HPF (0.0-6.0) 05/24/18 14:50 Urine RBC (Auto) 1.0 /HPF (0.0-6.0) 05/24/18 14:50 U Epithel Cells (Auto) < 1.0 /HPF (0-13.0) 05/24/18 14:50 Urine Bacteria (Auto) 1+ /HPF (Negative) 05/24/18 14:50 Urine Eosinophils None seen (None Seen) 05/24/18 14:50
[2018-05-26] MEDS: NACL 0.9% 1000 ML 1,000 ML IV SCH (01:40)
[2018-05-26 04:12] LABS: Creatinine 24 Hour,Urine 2.3 (0.8-2.8); Creatinine,Urine 122.6 mg/dL (0.1-20.0)
[2018-05-26 06:11] LABS: Calcium 8.7 mg/dL (8.4-10.2)
[2018-05-26] MEDS: NORVASC PO SCH (09:07)
[2018-05-26] MEDS: SODIUM CHLORIDE FLUSH SYRINGE 10 ML IV SCH (09:08)
[2018-05-26] MEDS: APRESOLINE PO SCH ×2 (09:08→13:27)
[2018-05-26] MEDS: PEPCID PO SCH (09:08)
--- NOTE | 2018-05-26 10:00 | Progress Note ---
Assessment and Plan 1) Acute HFrEF (heart failure with reduced ejection fraction) Current Visit: Yes Status: Acute (2) Acute on chronic renal failure Current Visit: Yes Status: Acute Serm Cr 5.0 (3) Hypertension Current Visit: Yes Status: Chronic well controlled. Decrease BP med (4) History of ETOH abuse Current Visit: Yes Status: Chronic (5) History of cocaine use Current Visit: Yes Status: Chronic (6) History of tobacco use Current Visit: Yes Status: Chronic Subjective Principal diagnosis: ckd stage 4/5 Interval history: No chest pain or short of breath. Objective Vital Signs Temp Pulse Pulse Resp BP Pulse Ox 05/26/18 09:07 50 L 133/80 05/26/18 08:38 133/80 05/26/18 04:57 97.5 F L 24 103/42 05/25/18 23:15 56 L 142/76 05/25/18 22:10 98.2 F 58 L 20 141/71 98 05/25/18 22:00 58 L 20 98 05/25/18 17:25 98.6 F 60 18 128/78 95 05/25/18 12:25 98.0 F 58 L 18 143/81 97 - Physical Examination General: No Apparent Distress HEENT: Positive: PERRL, Normocephaly, Mucus Membranes Moist Neck: Positive: neck supple, trachea midline. Negative: JVD/HJR Cardiac: Positive: Regular Rate, S1/S2, S4 Lungs: Positive: clear to auscultation Neuro: Positive: Grossly Intact Abdomen: Positive: Soft, Active Bowel Sounds. Negative: Tender Skin: Negative: Rash, Wound Musculoskeletal: No Pain Extremities: Absent: edema - Labs and Meds Comprehensive Metabolic Panel 05/26/18 Range/Units 05:21 Sodium 141 (137-145) mmol/L Potassium 4.0 (3.6-5.0) mmol/L Chloride 102.3 (98-107) mmol/L Carbon Dioxide 23 (22-30) mmol/L BUN 46 H (9-20) mg/dL Creatinine 5.0 H (0.8-1.5) mg/dL Glucose 110 H (75-100) mg/dL Calcium 8.7 (8.4-10.2) mg/dL - Imaging and Cardiology EKG: report reviewed, image reviewed Echo: report reviewed (EF 45-50%, moderate LVH, pseudonormalization. ) - EKG Sinus rhythms and dysrhythmias: sinus rhythm Repolarization changes or abnormalities: repolarization abn secondary to ventricular hypertrophy
[2018-05-26] MEDS: COREG PO SCH (10:18)
--- NOTE | 2018-05-26 11:38 | Progress Note ---
Assessment and Plan Impression: * DORA on adv CKD sec to HTN--cr 1.9 in 2013 * Uncontrolled HTN, obesity, salt intake, cocaine use and noncompliance are all contributory factors. * Chest pain under evaluation * cardiomyopathy * Chronic smoker. * Drug abuse * Alcohol abuse. Plan: * hold tatyana and hctz * stopped lasix * follow up 24hr crcl and protein--31ml/min with 1.8grams protein--appears to be overcollection * ckd likely due to uncontrolled hd * cr was 1.9 in 2014, likely progression of ckd * no indication for top stop attacher at this time * avoid nephrotoxins * renal diet * do not over diurese * can dc home from renal standpoint, follow up office one week Subjective Date of service: 05/26/18 Principal diagnosis: ckd stage 4/5 Interval history: resting in bed today Objective - Exam Narrative Exam: GENERAL: The patient is well-developed well-nourished male lying on stretcher not appearing to be in acute distress. [] HEENT: Normocephalic. Atraumatic. Extraocular motions are intact. Patient has moist mucous membranes. NECK: Supple. Trachea midline CHEST/LUNGS: Clear to auscultation. There is no respiratory distress noted. HEART/CARDIOVASCULAR: Regular. There is no tachycardia. There is no gallop rub or murmur. ABDOMEN: Abdomen is soft, nontender. Patient has normal bowel sounds. There is no abdominal distention. SKIN: There is no rash. There is no edema. There is no diaphoresis. NEURO: The patient is awake, alert, and oriented. The patient is cooperative. The patient has normal speech MUSCULOSKELETAL: There is no evidence of acute injury. - Vital Signs Vital signs: Vital Signs - 12hr 05/26/18 05/26/18 05/26/18 04:57 08:38 09:07 Temperature 97.5 F L Pulse Rate 50 L Respiratory 24 Rate Blood Pressure 103/42 133/80 133/80 05/26/18 10:18 Temperature Pulse Rate 61 Respiratory Rate Blood Pressure 113/61 - Lab 05/24/18 04:57 05/26/18 05:21 Most recent lab results Calcium 8.7 mg/dL (8.4-10.2) 05/26/18 05:21 Urine Creatinine 122.6 mg/dL (0.1-20.0) H 05/25/18 03:00 Ur Total Protein 24 Hr 1813.00 mg/dL (2-200) H 05/25/18 03:00 Urine Total Protein 98 mg/dL (5-11.8) H 05/25/18 03:00 Medications & Allergies - Medications Allergies/Adverse Reactions: Allergies No Known Allergies Allergy (Verified 05/23/18 10:10) Home Medications: Home Medications Medication Instructions Recorded Confirmed Last Taken Type Carvedilol [Coreg] 25 mg PO BID 05/23/18 05/23/18 Unknown History Famotidine [Pepcid] 40 mg PO QHS 05/23/18 05/23/18 Unknown History Lisinopril [Zestril TAB] 40 mg PO QDAY 05/23/18 05/23/18 Unknown History amLODIPine [Norvasc] 10 mg PO DAILY 05/23/18 05/23/18 Unknown History hydrALAZINE [Apresoline TAB] 100 mg PO TID 05/23/18 05/23/18 Unknown History hydroCHLOROthiazide [HCTZ] 25 mg PO QDAY 05/23/18 05/23/18 Unknown History Active Medications: Generic Name Dose Route Start Last Admin Trade Name Freq PRN Reason Stop Dose Admin Acetaminophen 650 mg 05/24/18 02:50 05/24/18 11:59 Tylenol PO 650 mg Q4H PRN Administration Pain MILD(1-3)/Fever >100.5/BAXTER Amlodipine Besylate 10 mg 05/24/18 10:00 05/26/18 09:07 Norvasc PO 10 mg DAILY SEEMA Administration Carvedilol 25 mg 05/24/18 03:00 05/26/18 10:18 Coreg PO 25 mg BID SEEMA Administration Famotidine 10 mg 05/24/18 10:00 05/26/18 09:08 Pepcid PO 10 mg BID SEEMA Administration Hydralazine HCl 100 mg 05/24/18 08:00 05/26/18 09:08 Apresoline PO 100 mg TID SEEMA Administration Hydromorphone HCl 0.5 mg 05/24/18 02:50 Dilaudid IV Q3H PRN Pain , Severe (7-10) Sodium Chloride 1,000 mls @ 75 mls/hr 05/24/18 03:00 05/26/18 01:40 Nacl 0.9% 1000 Ml IV 75 mls/hr DIRECT SEEMA Administration Ondansetron HCl 4 mg 05/24/18 02:50 Zofran IV Q8H PRN Nausea And Vomiting Oxycodone/Acetaminophen 1 tab 05/24/18 02:50 Percocet 5/325 PO Q6H PRN Pain, Moderate (4-6) Sodium Chloride 10 ml 05/24/18 10:00 05/26/18 09:08 Sodium Chloride Flush Syringe 10 Ml IV 10 ml BID SEEMA Administration Sodium Chloride 10 ml 05/24/18 02:50 Sodium Chloride Flush Syringe 10 Ml IV PRN PRN LINE FLUSH
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
[2018-05-26 16:05] VITALS: BP 125/76
== END 2018-05-26 15:35 | disposition home or self-care (01) | DRG 682 ==
LOC: ED 10:02 → 3A 14:00
PROVIDERS: ADMIT Internal Medicine; ATTEND Internal Medicine
PROC: 3E0234Z Introduction of Serum, Toxoid and Vaccine into Muscle, Percutaneous Approach (ICD-10-PCS; principal; 2018-05-24)
DX: N17.9 Acute kidney failure, unspecified (principal); R65.11 Systemic inflammatory response syndrome (SIRS) of non-infectious origin with acute organ dysfunction; I42.9 Cardiomyopathy, unspecified; I13.0 Hypertensive heart and chronic kidney disease with heart failure and stage 1 through stage 4 chronic kidney disease, or unspecified chronic kidney disease; N18.3 Chronic kidney disease, stage 3 (moderate); J45.909 Unspecified asthma, uncomplicated; F17.200 Nicotine dependence, unspecified, uncomplicated; I50.9 Heart failure, unspecified; K21.9 Gastro-esophageal reflux disease without esophagitis; E66.9 Obesity, unspecified; F14.90 Cocaine use, unspecified, uncomplicated; F10.10 Alcohol abuse, uncomplicated; Z71.6 Tobacco abuse counseling; Z68.36 Body mass index [BMI] 36.0-36.9, adult; Z91.19 Patient's noncompliance with other medical treatment and regimen; Z79.899 Other long term (current) drug therapy; Z82.49 Family history of ischemic heart disease and other diseases of the circulatory system; Z23 Encounter for immunization
CPT/HCPCS: 36415; 71046; 80048; 80053; 81001; 82550; 82553; 82570; 83036; 83880; 84156; 84484; 85025; 85379; 89050; 90686; 90732; 93005; 93010; 93306; G0378; J1940; J7030